=== PATIENT | female | born 1990 | race Caucasian/White ===

== ENCOUNTER 2017-02-13 18:28 | Emergency (ER) | payer OTHER ==
[~2017-02-13 18:28] MED LIST: ADDERALL; BACTROBAN15 GM TOP; CIPRO PO; DEPAKOTE SPRIN125 M1 PO; DOXYCYCLINE HY100 M3 PO; KEFLEX500 MG PO; MACROBID100 M1 PO; NEURONTIN; NEURONTIN PO; NO MEDICATIONS; PHENERGAN25 M1 PO; PRENATAL1 TA1 PO; PYRIDIUM PO; SEROQUEL50 MG PO; WELLBUTRIN
[2017-02-13] MEDS ORDERED: NEURONTIN PO (18:33)
== END 2017-02-13 20:45 | disposition left against medical advice (07) ==
LOC: SED 18:28
DX: Z53.21 Procedure and treatment not carried out due to patient leaving prior to being seen by health care provider (principal)

== ENCOUNTER 2017-02-13 22:30 | Emergency (ER) | payer OTHER ==
[~2017-02-13] VITALS: Ht 149.9 cm; Wt 62.6 kg
== END 2017-02-13 23:54 | disposition home or self-care (01) ==
LOC: SED 22:30
DX: O86.0 Infection of obstetric surgical wound (principal); O99.345 Other mental disorders complicating the puerperium; F31.9 Bipolar disorder, unspecified; O99.335 Smoking (tobacco) complicating the puerperium; F17.200 Nicotine dependence, unspecified, uncomplicated; Z91.040 Latex allergy status; Z79.899 Other long term (current) drug therapy
CPT/HCPCS: 99283

== ENCOUNTER 2017-03-05 01:52 | Emergency (ER) | payer OTHER ==
[~2017-03-05] VITALS: Ht 149.9 cm; Wt 68.0 kg
== END 2017-03-05 02:50 | disposition home or self-care (01) ==
LOC: SED 01:52
DX: S51.802A Unspecified open wound of left forearm, initial encounter (principal); S71.101A Unspecified open wound, right thigh, initial encounter; W26.8XXA Contact with other sharp object(s), not elsewhere classified, initial encounter; F32.9 Major depressive disorder, single episode, unspecified; F90.9 Attention-deficit hyperactivity disorder, unspecified type; F17.210 Nicotine dependence, cigarettes, uncomplicated; Z87.440 Personal history of urinary (tract) infections; Z91.040 Latex allergy status; Z79.899 Other long term (current) drug therapy
CPT/HCPCS: 99284